=== PATIENT | male | born 1975 | race Native Hawaiian/Other Pacific Islander ===

== ENCOUNTER 2022-05-05 07:45 | Outpatient (CLI) | payer OTHER ==
[~2022-05-05 07:45] MED LIST: BYSTOLIC20 MG PO; LISITAB PO
== END 2022-05-05 18:53 | disposition home or self-care (01) ==
LOC: US 07:45
PROVIDERS: ATTEND Nurse Practitioner Family
DX: R10.12 Left upper quadrant pain (principal)